=== PATIENT | female | born 1955 | race Caucasian/White ===

== ENCOUNTER 2019-08-24 09:17 | Day surgery (SDC) | payer OTHER ==
[~2019-08-24] VITALS: Ht 162.6 cm; Wt 77.9 kg
[~2019-08-24 09:17] MED LIST: ASPI81TA85 PO; CALC-333 PO; ESTR2TAB2 PO; HYDR12CA PO; LOSA100T50 PO; LOVA20TA2 PO; MULTCAP PO; NS 1,000 ML IV ONE; OMEP1CAP73 PO
[2019-08-24] MEDS ORDERED: propofoL 200 MG/20 ML VIAL As Ordered ONE ×2 (09:56→11:35)
[2019-08-24] MEDS ORDERED: LIDOCAINE 2% INJ 100 MG/5 ML SDV (FOR ANES.) As Ordered ONE (09:56)
[2019-08-24] MEDS ORDERED: fentaNYL 100 MCG/2 ML INJECTION (J3010) As Ordered ONE (10:34)
--- NOTE | 2019-08-24 11:05 | ROOR ---
Patient Name: Corina Charles Procedure Date: 08/24/2019 10:54 AM Date of : 1955 Age: 64 Room: [facility] Gender: Female Note Status: Finalized Procedure: Upper GI endoscopy Indications: Heartburn Providers: Elias VILLALOBOS MD Referring MD: Chayito Mccord MD Requesting Provider: Medicines: Monitored Anesthesia Care Complications: No immediate complications. Procedure: Pre-Anesthesia Assessment: - The heart rate, respiratory rate, oxygen saturations, blood pressure, adequacy of pulmonary ventilation, and response to care were monitored throughout the procedure. The Endoscope was introduced through the mouth, and advanced to the second part of duodenum. The upper GI endoscopy was accomplished without difficulty. The patient tolerated the procedure well. Findings: The Z-line was variable and was found 37 to 38 cm from the incisors. This was biopsied with a cold forceps for histology. Small intermittent Hiatal Hernia. The exam was otherwise without abnormality. Impression: - Z-line variable, 37 to 38 cm from the incisors. Biopsied. - Small sliding Hiatal Hernia. - The examination was otherwise normal. Recommendation: - Await pathology results. - Telephone endoscopist for pathology results in 2 weeks. - Continue present medications. - Follow an antireflux regimen. - Observe patient's clinical course. Elias Villalobos MD Elias VILLALOBOS MD 08/24/2019 11:04:56 AM Electronically signed by Elias VILLALOBOS MD Number of Addenda: 0 Note Initiated On: 08/24/2019 10:54 AM Estimated Blood Loss: Estimated blood loss: none.
--- NOTE | 2019-08-24 11:28 | ROOR ---
Patient Name: Corina Charles Procedure Date: 08/24/2019 10:55 AM Date of : 1955 Age: 64 Room: [facility] Gender: Female Note Status: Finalized Procedure: Colonoscopy Indications: Screening for colorectal malignant neoplasm Providers: Elias VILLALOBOS MD Referring MD: Chayito Mccord MD Requesting Provider: Medicines: Monitored Anesthesia Care Complications: No immediate complications. Procedure: Pre-Anesthesia Assessment: - The heart rate, respiratory rate, oxygen saturations, blood pressure, adequacy of pulmonary ventilation, and response to care were monitored throughout the procedure. The Colonoscope was introduced through the anus and advanced to the terminal ileum, with identification of the appendiceal orifice and IC valve. The colonoscopy was performed without difficulty. The patient tolerated the procedure well. The quality of the bowel preparation was adequate and fair. Findings: The perianal and digital rectal examinations were normal. A 4 mm polyp was found in the sigmoid colon. The polyp was sessile. The polyp was removed with a cold snare. Resection and retrieval were complete. Mild sigmoid diverticulosis and small internal hemorrhoids. The exam was otherwise without abnormality on direct and retroflexion views. Impression: - Preparation of the colon was fair/adequate after lavage. - One 4 mm polyp in the sigmoid colon, removed with a cold snare. Resected and retrieved. - Mild sigmoid diverticulosis and small internal hemorrhoids. - The examination was otherwise normal on direct and retroflexion views. Recommendation: - Repeat colonoscopy in 5 years for surveillance. Elias Villalobos MD Elias VILLALOBOS MD 08/24/2019 11:28:06 AM Electronically signed by Elias VILLALOBOS MD Number of Addenda: 0 Note Initiated On: 08/24/2019 10:55 AM Estimated Blood Loss: Estimated blood loss: none.
[2019-08-24 11:45] VITALS: BP 106/74
== END 2019-08-24 11:49 | disposition home or self-care (01) ==
LOC: M OPP 09:17
PROVIDERS: ATTEND Internal Medicine Gastroenterology
DX: Z12.11 Encounter for screening for malignant neoplasm of colon (principal); D12.5 Benign neoplasm of sigmoid colon; K57.30 Diverticulosis of large intestine without perforation or abscess without bleeding; K22.8 Other specified diseases of esophagus; K64.8 Other hemorrhoids; K44.9 Diaphragmatic hernia without obstruction or gangrene; K21.9 Gastro-esophageal reflux disease without esophagitis; R12 Heartburn; Z79.82 Long term (current) use of aspirin; Z79.899 Other long term (current) drug therapy; Z88.1 Allergy status to other antibiotic agents; Z88.2 Allergy status to sulfonamides
CPT/HCPCS: 43239; 45385; 88305; J3010

== ENCOUNTER → 2019-12-19 | Outpatient (REF) | payer OTHER ==
[~2019-12-19] MED LIST changes: -ASPI81TA85 PO; +ASPI81TA86 PO; -NS 1,000 ML IV ONE
== END ==
LOC: M LAB REF 13:15
PROVIDERS: ATTEND Physician Assistant
DX: C44.89 Other specified malignant neoplasm of overlapping sites of skin (principal)

== ENCOUNTER → 2023-01-31 | Outpatient (REF) | payer OTHER, BC, MEDICARE ==
[~2023-01-31] MED LIST changes: -ESTR2TAB2 PO; +ESTR2TAB3 PO; +LOSA100T46 PO; -LOSA100T50 PO
== END ==
LOC: M SFHCDERM 17:56
PROVIDERS: ATTEND Physician Assistant
DX: L57.0 Actinic keratosis (principal)